=== PATIENT | female | born 2000 | race Caucasian/White ===

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

== ENCOUNTER → 2018-02-15 07:52 | Outpatient (POV) | payer BC, SELFPAY | PROVIDERS: Family Provider Family Medicine; PCP Family Medicine; Visit Provider Dentist | DX: Z00.00 Encounter for general adult medical examination without abnormal findings (principal) ==

== ENCOUNTER → 2018-12-21 13:30 | Outpatient (CLI) | payer BC, SELFPAY | PROVIDERS: Visit Provider Obstetrics & Gynecology | DX: Z01.419 Encounter for gynecological examination (general) (routine) without abnormal findings (principal) | CPT/HCPCS: 87491; 87591 ==

== ENCOUNTER → 2020-06-03 17:10 | Outpatient (CLI) | payer BC, SELFPAY | PROVIDERS: Visit Provider Nurse Practitioner Obstetrics & Gynecology | DX: Z01.419 Encounter for gynecological examination (general) (routine) without abnormal findings (principal); N39.0 Urinary tract infection, site not specified | CPT/HCPCS: 87086; 87088; 87186 ==

== ENCOUNTER 2021-04-13 17:44 | Emergency (ER) | payer BC, SELFPAY ==
[2021-04-13 17:45] VITALS: BP 154/78; PULSE 101; RESP 20; O2SAT 99; BMI 28.2
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
--- NOTE | 2021-04-13 18:07 | PC.NURSE ---
PATIENT SENT TO ER PER SABI MCCORMICK APRN FOR FURTHER EVALUATION OF HEAD INJURY. REPORT GIVEN BY Kati MCCORMICK APRN TO Paris [place] RN
[2021-04-13 18:09] VITALS: BP 137/90; PULSE 84; RESP 18; TEMP 36.6; O2SAT 98; BMI 28.1
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
[2021-04-13 18:30] LABS: Urine Pregnancy, HCG Qual. Negative (Negative)
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
[2021-04-13 20:10] VITALS: BP 112/79; PULSE 73; RESP 17; TEMP 36.8; O2SAT 97
== END 2021-04-13 20:21 | disposition home or self-care (01) ==
LOC: UTC 17:47 → ER 18:06
PROVIDERS: Emergency Provider Emergency Medicine; PCP Family Medicine
DX: S06.0X0A Concussion without loss of consciousness, initial encounter (principal); S16.1XXA Strain of muscle, fascia and tendon at neck level, initial encounter; E04.1 Nontoxic single thyroid nodule; V86.65XA Passenger of 3- or 4- wheeled all-terrain vehicle (ATV) injured in nontraffic accident, initial encounter; Y92.89 Other specified places as the place of occurrence of the external cause; Z88.0 Allergy status to penicillin
CPT/HCPCS: 70450; 72125; 81025; 99282

== ENCOUNTER → 2021-04-19 07:52 | Outpatient (CLI) | payer BC, SELFPAY ==
--- NOTE | 2021-04-19 07:57 | US_ITS ---
PROCEDURE: US THYROID CLINICAL INDICATION: LEFT THYROID NODULE Follow up Right lobe: normal Isthmus: normal Lt lobe: multiple nodules, enlarged >need old ultrasound report COMPARISON: US THY US THYROID from 09/27/[address] CERVICAL SPINE WO CON from 04/13/2021 FINDINGS: Right lobe: 3.2 x 1.5 x 1.1 cm. Unremarkable appearance. Left lobe: The left lobe of the thyroid gland is diffusely enlarged with some heterogeneous echogenicity. It is possible that the entire left lobe is composed a large nodule simulating an enlarged thyroid gland. The left lobe measures 5 x 2.3 x 3.6 cm. There are heterogeneous areas of echogenicity within the left lobe. There are also areas of decreased echogenicity representing small cystic areas measuring 5 mm. IMPRESSION: Enlarged left lobe of the thyroid gland versus diffuse involvement a thyroid nodule. Suspect after reviewing the CT scan of 04/13/2021 that nearly the entire left lobe is involved by a nodule measuring 5 x 3 cm. Ultrasound-guided fine needle aspiration suggested. . Dictated by: Brian Rebolledo MD 04/20/2021 07:36 Brian Rebolledo MD in [place] 04/20/2021 07:36
== END ==
PROVIDERS: PCP Family Medicine; Visit Provider Family Medicine
DX: E04.1 Nontoxic single thyroid nodule (principal)
CPT/HCPCS: 76536

== ENCOUNTER → 2021-05-12 09:50 | Outpatient (CLI) | payer BC, SELFPAY ==
--- NOTE | 2021-05-12 09:59 | US_ITS ---
PROCEDURE: US FNA THYROID CLINICAL INDICATION: THYROID NODULE Dominant nodule left lobe of the thyroid gland COMPARISON: US US THYROID from 04/19/2021 TECHNIQUE: Following obtaining informed consent, using aseptic technique and local anesthesia with buffered lidocaine, fine-needle aspiration was performed of the nodule of interest using sonographic guidance. 3 passes were made into the nodule with a 21-gauge needle. Specimen was given to cytology. The patient tolerated the procedure well without evidence of immediate complications and left the ultrasound suite in stable condition. FINDINGS: The same nodule was submitted in 2 separate cytology containers due to initial bloody aspirate on the 1st specimen. CYTOLOGY: Negative for malignancy. Consistent with benign follicular/colloid nodule IMPRESSION: Uneventful ultrasound-guided FNA of the left thyroid nodule showing benign findings. Dictated by: Brian Rebolledo MD 05/25/2021 11:33 Brian Rebolledo MD in [place] 05/25/2021 11:33
== END ==
PROVIDERS: PCP Family Medicine; Visit Provider Family Medicine
DX: E04.1 Nontoxic single thyroid nodule (principal)
CPT/HCPCS: 10005

== ENCOUNTER → 2021-11-25 14:04 | Outpatient (CLI) | payer BC, SELFPAY ==
--- NOTE | 2021-11-25 14:08 | US_ITS ---
FINAL REPORT CLINICAL HISTORY: NODULE OF LEFT LOBE OF THYROID COMPARISON: April 19, 2021 FINDINGS: THYROID ULTRASOUND The right lobe of the thyroid measures 3.5 x 1.3 x 1.0 cm. The left lobe of the thyroid measures 5.5 x 3.6 x 2.8 cm. The parenchyma shows normal echogenicity. There is a 4.4 x 2.2 cm isoechoic TI-RADS 3 mass in the left lobe of the thyroid. IMPRESSION: TI-RADS 3 left thyroid mass, similar to prior. Reviewed, Interpreted and Dictated by Aaron Pichardo III, MD Transcribed by Clinton Phillips Authenticated by Aaron Pichardo III, MD on 11/26/2021 07:40:27 AM [facility]
== END ==
PROVIDERS: PCP Family Medicine; Visit Provider Family Medicine
DX: E04.1 Nontoxic single thyroid nodule (principal)
CPT/HCPCS: 76536

== ENCOUNTER → 2022-03-21 07:27 | Outpatient (CLI) | payer BC, SELFPAY ==
[2022-03-21 07:32] LABS: MANUAL DIFFERENTIAL MANUAL DIFFERENTIAL (MANUAL DIFF)
[2022-03-21 08:04] LABS: Urine Pregnancy, HCG Qual. Negative (Negative)
[2022-03-21 08:06] LABS: Basophils # 0.1 K/mm3 (0-0.2); Eosinophils # 0.1 K/mm3 (0.0-0.4); Eosinophils % 1.4 % (0.1-12.0); Hematocrit 40.6 % (37.0-47.0); Hemoglobin 13.5 g/dL (12.2-16.2); Lymphocytes # 3.1 K/mm3 (0.7-4.5); Lymphocytes % 32.8 % (10-50); Mean Corpuscular HGB Conc 33.1 g/dL (31.8-35.4); Mean Corpuscular Hemoglobin 30.6 pg (27.0-31.2); Mean Corpuscular Volume 92.3 fl (81-99); Mean Platelet Volume 7.3 fl (7.4-10.4); Monocytes # 0.6 K/mm3 (0.1-1.0); Monocytes % 5.8 % (1.7-9.3); Neutrophils # 5.6 K/mm3 (1.8-7.8); Platelet Count 373 K/mm3 (142-424); Red Cell Distribution Width 12.5 % (11.5-17.5); White Blood Count 9.4 K/mm3 (4.8-10.8)
[2022-03-21 08:28] LABS: Lymphocytes % 34 % (10-50); Monocytes % 4 % (2-9); Neutrophils % 62 % (42-76); Total Cells Counted 100
[2022-03-21 08:30] LABS: Ovalocytes 1+; Platelet Estimate Normal
[2022-03-21 08:42] LABS: Chloride 106 mmol/L (98-107); Sodium 139 mmol/L (136-145)
[2022-03-21 08:43] LABS: Potassium 3.8 mmoL/L (3.5-5.1)
[2022-03-21 08:45] LABS: Blood Urea Nitrogen 9 mg/dl (7-17); Estimated Glomerular Filt Rate 104 ml/min (>60); GFR (African American) 125 ML/MIN (>60)
[2022-03-21 08:46] LABS: Anion Gap 11.8 mEq/L (5-15); Calcium 9.2 mg/dl (8.4-10.2); Carbon Dioxide 25 mmol/L (22.0-30.0); Glucose 100 mg/dl (74-100)
== END ==
PROVIDERS: PCP Family Medicine; Visit Provider Student in an Organized Health Care Education/Training Program
DX: Z01.812 Encounter for preprocedural laboratory examination (principal); Z20.822 Contact with and (suspected) exposure to COVID-19; E04.1 Nontoxic single thyroid nodule
CPT/HCPCS: 36415; 80048; 81025; 85007; 85014; 85018; 85048; 85049; C9803; U0003; U0005

== ENCOUNTER 2022-03-23 07:12 | Day surgery (SDC) | payer BC, SELFPAY ==
[2022-03-21 10:39] VITALS: BMI 27.6
[2022-03-23] VITALS (12 sets, daily range): BP systolic 116–147; BP diastolic 67–89; PULSE 104–131; RESP 18–32; TEMP 36.3–36.7; O2SAT 95–99
--- NOTE | 2022-03-23 07:48 | P.PN_ITS ---
[facility] Anesthesia Checklist - Patient Identification Patient Identification: Arm Band - Structural Data Admitted From: Home Planned Operative Procedure/s: Left Hemithyroidectomy Consent for Planned Operative Procedure(s) Verified: Yes Verified Documents: Surgical Consent, History and Physical - NPO Status Verified Time NPO: 00:00 - Additional verifications Anesthesia Reactions: No Hx Blood Transfusions: No Blood Transfusion Reaction: No - Airway Assessment C-Spine Mobility Assessed: Yes (mp2) TMJ Mobility Assessed: Yes Dentition: Good Dentition - Neurological Assessment Level of Consciousness: Awake, Alert - Anesthesia Plan Anesthesia Risk discussed: Yes Anesthesia Plan: Verified ASA Class: I Anesthesia Type: General [facility] History I have reviewed the patient's past medical history: Yes Medical History: Denies:: Cancer, Diabetes Mellitus Type 1, Diabetes Mellitus Type 2, Internal Pacemaker, MRSA, Seizures *Have you ever received a pneumonia vaccine?: No *Have you received a flu vaccine this season?: No Other Medical History: Denies: Blood Transfusion Reaction Anesthesia experience/problems:: nac Other Surgeries: Yes: Other. No: Pacemaker Amputation: No Fractures: No - *Social History Smoking Status: Never smoker Alcohol Intake: never Substance Use Type: denies use *Occupational Status:: employed Housing: house Household Members: family *Travel in the last 8 weeks: None Family Hx:: No significant family history
--- NOTE | 2022-03-23 12:05 | P.OP_ITS ---
Date of procedure: 03/23/22 Pre-op Diagnosis:: left thyroid nodule Post-op Diagnosis:: same Procedure performed:: left hemithyroidectomy Surgeon:: Bryce Serrano MD FINANCIAL REPRESENTATIVE:: Nelda Go Anesthesia: RUSTAM Estimated blood loss (mL): 10 Operative findings:: large left thyroid nodule/mass Operative note:: The patient was brought to the OR, laid in the supine position, and general anesthesia with a Nims nerve monitoring endotracheal tube was induced. Nerve monitor was set up and confirmed to be working appropriately. Patient was prepped and draped in usual fashion. Lidocaine with epinephrine 1-100,000 was injected below the incision site. I dissected through the skin, subcutaneous tissues, and platysma. The strap muscles were identified as well as the midline raphae. The strap muscles were divided at the raphae. I then began to dissect the strap muscles off of the large left thyroid nodule. I isolated the superior pedicle and was taken down with a harmonic. The superior parathyroid gland was identified and preserved. We then came inferiorly again freeing thyroid from the surrounding tissue. I then began to roll the thyroid in a lateral to medial fashion of the patient's neck. The recurrent laryngeal nerve was identified and preserved during this process. I dissected through Archer's ligament and ultimately removed the large left thyroid nodule. Thyroid was divided at the midline isthmus and then sent for permanent pathology. Patient's neck was then thoroughly irrigated out. Hemostasis was achieved with bipolar cautery. The recurrent laryngeal nerve stimulated both proximally and distally at the end of the case. 15 Thai drain was fashioned in the patient's neck. She was the incision was then closed in 2 layers. She was then turned back over to anesthesia to be awoken and extubated. Condition: stable Disposition: PACU Complications:: none
--- NOTE | 2022-03-23 12:09 | P.PN_ITS ---
[facility] Anesthesia Record Part I Intake, IV Amount: 800 Estimated blood loss (mL): 10 Urine output (mL): 0 Blood Pressure: 119/75 SaO2: 95 Pulse Rate: 121 Respiratory Rate: 32 Temperature: 98 F Patient is:: Awake Stable to PACU at:: 12:05
--- NOTE | 2022-03-23 12:47 | SUR.PHASEI ---
Matthew Go CRNA notified of patient HR. OK to d/c as long as b/p stable. Patient nausea resolved after IV phenergan x 1. Patient transferred to phase II.
--- NOTE | 2022-03-23 13:10 | P.PN_ITS ---
[facility] Anesthesia Record Part II Discharge Time: 12:37 Destination: Surgical Day Care (OP Surgery) PACU nurse assessment reviewed?: Yes Patient Condition:: Good Anesthesia Complications:: None Swallowing reflex intact?: Yes Cyanosis?: No Blood Pressure: 121/83 Pulse Rate: 116 Temperature: 97.3 F Mental Status: Alert & Oriented Pain level:: 0 Nausea and/or vomitting:: None Intake, IV Amount: 0
== END 2022-03-23 13:22 | disposition home or self-care (01) ==
LOC: OR 07:14
PROVIDERS: PCP Family Medicine; Visit Provider Student in an Organized Health Care Education/Training Program
PROC: (CPT 60220; principal; 2022-03-23 08:45)
DX: E04.1 Nontoxic single thyroid nodule (principal); Z88.0 Allergy status to penicillin
CPT/HCPCS: 60220; 96374; J0131; J2405

== ENCOUNTER 2022-03-24 16:46 | Outpatient (CLI) | payer BC, SELFPAY ==
--- NOTE | 2022-03-24 16:55 | PC.NURSE ---
RIGO drain removed without difficulty, site covered with telfa/tegaderm dressing, minimal oozing noted and stopped. Output in bulb approx 25ml. Patient tolerated well and discharged to care of boyfriend.
== END 2022-03-24 16:58 | disposition home or self-care (01) ==
LOC: INF 16:46
PROVIDERS: PCP Family Medicine; Visit Provider Student in an Organized Health Care Education/Training Program
DX: Z48.03 Encounter for change or removal of drains (principal); Z48.811 Encounter for surgical aftercare following surgery on the nervous system
CPT/HCPCS: G0463

== ENCOUNTER → 2022-04-06 13:37 | Outpatient (CLI) | payer BC, SELFPAY ==
[2022-04-06 15:05] LABS: Free T4 (Free Thyroxine) 1.01 ng/dl (0.78-2.19)
[2022-04-06 15:21] LABS: Thyroid Stimulating Hormone 2.14 uIU/mL (0.465-4.68)
== END ==
PROVIDERS: PCP Family Medicine; Visit Provider Student in an Organized Health Care Education/Training Program
DX: E04.1 Nontoxic single thyroid nodule (principal)
CPT/HCPCS: 36415; 84439; 84443

== ENCOUNTER → 2022-09-28 14:51 | Outpatient (CLI) | payer BC, SELFPAY ==
[2022-09-28 17:41] LABS: Free T4 (Free Thyroxine) 0.98 ng/dl (0.78-2.19)
[2022-09-28 17:55] LABS: Thyroid Stimulating Hormone 2.84 uIU/mL (0.465-4.68)
== END ==
PROVIDERS: PCP Family Medicine; Visit Provider Student in an Organized Health Care Education/Training Program
DX: E89.0 Postprocedural hypothyroidism (principal)
CPT/HCPCS: 36415; 84439; 84443